=== PATIENT | male | born 1990 | race Hispanic/Latino ===

== ENCOUNTER 2016-12-11 21:52 | Emergency (ER) | payer OTHER ==
[~2016-12-11] VITALS: Ht 177.8 cm; Wt 90.9 kg
[2016-12-11 21:54] VITALS: BP 135/90
[2016-12-11] MEDS ORDERED: NAPROXEN 250 MG TAB PO ONE (22:45)
--- NOTE | 2016-12-12 08:03 | REP ---
Clinical: Trauma. Technique: AP, lateral, bilateral oblique views of the left ankle. Findings: Moderate soft tissue swelling over the lateral malleolus consistent with inversion injury. No acute fracture dislocation. Joint spaces and ankle mortise are intact. Impression: Swelling. No acute fracture or dislocation. Signed by Stanislav Rodriguez MD 12/12/2016 07:55 A
== END 2016-12-11 22:54 | disposition home or self-care (01) ==
LOC: M ED 21:52
DX: S93.402A Sprain of unspecified ligament of left ankle, initial encounter (principal); X50.9XXA Other and unspecified overexertion or strenuous movements or postures, initial encounter; Y92.149 Unspecified place in prison as the place of occurrence of the external cause; Y93.9 Activity, unspecified; Y99.8 Other external cause status; F17.200 Nicotine dependence, unspecified, uncomplicated

== ENCOUNTER → 2018-03-25 | Outpatient (CLI) | payer OTHER | LOC: M RAD 09:12 | DX: Z01.818 Encounter for other preprocedural examination (principal); Z87.891 Personal history of nicotine dependence | CPT/HCPCS: 71046 ==